=== PATIENT | male | born 1955 | race Caucasian/White ===

== ENCOUNTER 2020-01-05 04:51 | Emergency (ER) | payer OTHER, SELFPAY ==
--- NOTE | 2020-01-05 04:58 | XRR_ITS ---
PROCEDURE INFORMATION: Exam: XR Left Hand Exam date and time: 01/05/2020 5:23 AM Age: 64 years old Clinical indication: Injury or trauma; Injury history: Laceration 3rd digit; Initial encounter; Left; Middle finger; Injury date: [employer] TECHNIQUE: Imaging protocol: XR Left hand. Views: 3 or more views. COMPARISON: No relevant prior studies available. FINDINGS: Bones/joints: No fracture. No dislocation. There is multifocal mild osteoarthritis. Soft tissues: There is soft tissue swelling and gas compatible with history of a laceration. No radiopaque foreign body, though there is small calcification in the soft tissue dorsal to the distal 3rd proximal phalanx. XR/XR hand LT min 3V* [id number] IMPRESSION: Soft tissue injury without osseous injury.
--- NOTE | 2020-01-05 04:58 | W.ED.UPPEXIN ---
HPI - Extremity Injury (Upper) General: Chief Complaint: Extremity Injury, Upper Stated Complaint: finger injury Time Seen by Provider: 01/05/20 04:56 Source: patient Mode of arrival: ambulatory Limitations: no limitations History of Present Illness: HPI narrative: 64-year-old male who presents here after having a laceration to his left middle finger. He states that he had a bungee cord cut that finger roughly 24 hours ago. Patient states that he has had bruising and some slight pain. Patient has been taking in Augmentin at home and states that he has a full prescription of it that was recent. He states his last tetanus was 3 years ago. He has had no longer bleeding. He states he does have pain that sharp in nature and rates it a 4 out of 10. He states it is worse with movement. MD complaint: injury to: left and finger Onset (ago): day(s) Other Extremity Injury: Left: fingers Place: home Associated symptoms: Denies neck pain Review of Systems Const: Denies: fever(s), chills, body aches or change in appetite Eyes: Denies: blurry vision or eye discomfort ENMT: Denies: throat pain or dental pain Card: Denies: chest pain Resp: Denies: dyspnea GI: Denies: abdominal pain, nausea, vomiting or diarrhea : Denies: dysuria Musc: Denies: neck pain or back pain Skin/Breast: Denies: rash Neuro: Denies: headache(s) Psych: Denies: depression Atilio/Lymph: Denies: easy bruising All/Imm: Denies: urticaria Physical Exam Const: COMMON NORMALS: no acute distress, patient oriented x3 and healthy appearing HENMT: COMMON NORMALS: normocephalic and atraumatic HEAD & SCALP: normocephalic and atraumatic Eye: COMMON NORMALS: Equal, round and reactive pupils present and EOMs intact bilaterally PUPIL: Yes Equal, round and reactive pupils present Neck/C-Spine: COMMON NORMALS: full ROM and supple Chest: COMMONS NORMALS: normal inspection of the chest and normal palpation of entire chest wall Resp: COMMON NORMALS: normal respiratory effort, No retractions, No use of accessory muscles and clear to auscultation bilaterally AUSCULTATION: clear to auscultation bilaterally Cardio: COMMON NORMALS: regular rate, regular rhythm and No murmurs present (Cardio) RATE: regular rate RHYTHM: regular rhythm GI: COMMON NORMALS: Normal to inspection, nondistended, normoactive bowel sounds present, Soft to palpation, non-tender and no masses PALPATION: Yes Soft to palpation Extremity: COMMON NORMALS: normal to inspection and full ROM Neuro: COMMON NORMALS: patient oriented x3, moves all extremities and no focal motor deficits Psych: COMMON NORMALS: mental status grossly normal, Normal thought process present and cooperative THOUGHT PROCESS: Normal thought process present Skin: COMMON NORMALS: no rashes or lesions noted NARRATIVE SKIN EXAM: 1.5 cm laceration to the distal portion of his left middle finger. Laceration superficial nature with slight erythema to it. Patient has no tenderness along the flexor sheath and is able to have full range of motion of that finger. He has slight pain with palpation. GENERAL SKIN EXAM: no rashes or lesions noted Course Vital Signs: Vital signs: Vital Signs Temperature 98.3 F 01/05/20 04:59 Pulse Rate 94 01/05/20 04:59 Respiratory Rate 18 01/05/20 04:59 Blood Pressure 167/104 01/05/20 04:59 Pulse Oximetry 99 01/05/20 04:59 MDM - Extremity Injury (Upper) MDM Narrative: Medical decision making narrative: Salo presents here with a finger laceration x-ray shows no fracture. Wound is 24 hours old and will not close due to increased risk of infection will let heal the secondary intention will place pressure dressing to it and place him on Augmentin. He is to return if any signs of infection. Imaging Data^: X-ray left hand: Attestation: I personally reviewed and interpreted this imaging study as follows: My impression: No acute abnormality Discharge Plan Discharge Patient Disposition: Home Clinical Impression: Finger laceration Qualifiers: Encounter type: initial encounter Finger: middle finger Damage to nail status: without damage Foreign body presence: without foreign body Laterality: left Qualified Code(s): S61.213A - Laceration without foreign body of left middle finger without damage to nail, initial encounter Condition: Stable Prescriptions: New Augmentin 875-125 mg tablet 1 tab PO BID Qty: 14 RF: 0 Discharge Orders: Discharge Order (Routine); Ordered 01/05/20 Ordered By: Molly Gonzalez Discharge Diet: Advance as tolerated Discharge Activity: Resume usual activity Patient Instructions: Laceration (ED) Coding Level of Care Code [facility] for g Fwd Exam Comprehensive
[2020-01-05 04:59] VITALS: BP 167/104; PULSE 94; RESP 18; TEMP 36.8; O2SAT 99; BMI 34.8
[2020-01-05 05:42] VITALS: PULSE 84
[2020-01-05] MEDS: cefTRIAXone 1,000 mg SDV 1000 MG IM (05:46)
[2020-01-05 05:53] VITALS: BP 154/89; PULSE 98; RESP 18; O2SAT 98
== END 2020-01-05 05:58 | disposition home or self-care (01) ==
LOC: ER 05:08
PROVIDERS: Emergency Provider Emergency Medicine
DX: S61.213A Laceration without foreign body of left middle finger without damage to nail, initial encounter (principal); W26.8XXA Contact with other sharp object(s), not elsewhere classified, initial encounter
CPT/HCPCS: 12345; 73130; 96372; 99282; 99283; J0696